=== PATIENT | male | born 1990 | race Two or more races ===

== ENCOUNTER 2022-04-22 22:11 | Emergency (ER) | payer OTHER | END 2022-04-23 | disposition home or self-care (01) | LOC: MW.ED 22:11 | DX: F41.9 Anxiety disorder, unspecified (principal); I10 Essential (primary) hypertension; Z79.899 Other long term (current) drug therapy; Z86.16 Personal history of COVID-19 | CPT/HCPCS: 71046; 71046-26; 99283 ==